=== PATIENT | female | born 1990 | race Caucasian/White ===

== ENCOUNTER 2024-02-28 11:33 | Outpatient (OUT) | payer OTHER, SELFPAY ==
--- NOTE | 2024-02-28 11:43 | US_ITS ---
[address] [address] Patient Name: MARGARET SMITH MRN: [id number] date: 1990 Sex: F Assigned Patient Location: [facility] Current Patient Location: [facility] Accession/Order Number: [id number] Exam Date: 02/28/2024 11:43 Report Date: 02/29/2024 12:59 At the request of: CHANG RATLIFF Procedure: US pelvis transvaginal EXAMINATION: US pelvis transvaginal HISTORY: PAIN SINCE IUD INSERTION ON JANUARY 31, 2024 COMPARISON: No relevant comparison available. TECHNIQUE: Transabdominal and/or transvaginal sonographic examination was performed as indicated by examination type. FINDINGS: UTERUS: Normal size and appearance. Uterus size: 7.7 x 3.5 x 4.8 cm ENDOMETRIUM: Normal homogeneous appearance. IUD within endometrial cavity appearing in good position. Endometrial thickness: 3 mm RIGHT OVARY: Normal size and appearance. Duplex Doppler demonstrates normal waveform and flow; resistive index 0.6. Ovary size: 2.8 x 1.8 x 2.8 cm LEFT OVARY: Normal size and appearance. Duplex Doppler demonstrates normal waveform and flow; resistive index 0.6. Ovary size: 2.8 x 2.1 x 2.1 cm CUL-DE-SAC: Unremarkable. No significant free fluid. BLADDER: Unremarkable. OTHER: None. US/US pelvis transvaginal IMPRESSION: 1. Unremarkable uterus and ovaries. 2. IUD within endometrial cavity appearing in good position. Electronically authenticated by: PATRICE JOSUE Date: 02/29/2024 12:59
== END 2024-02-28 11:34 | disposition home or self-care (01) ==
LOC: NOMS 11:37
PROVIDERS: Visit Provider Obstetrics & Gynecology
DX: Z01.419 Encounter for gynecological examination (general) (routine) without abnormal findings (principal); R10.2 Pelvic and perineal pain; Z97.5 Presence of (intrauterine) contraceptive device
CPT/HCPCS: 76830; 87624; 88175

== ENCOUNTER 2024-02-28 19:58 | Outpatient (REF) | payer OTHER, SELFPAY | END 2024-02-28 19:59 | disposition home or self-care (01) | LOC: LAB 19:58 | PROVIDERS: Visit Provider Obstetrics & Gynecology | DX: Z01.419 Encounter for gynecological examination (general) (routine) without abnormal findings (principal) | CPT/HCPCS: 87624; 88175 ==